=== PATIENT | female | born 1960 | race Caucasian/White ===

== ENCOUNTER 2019-10-19 02:47 | Emergency (ER) | payer SELFPAY ==
--- NOTE | 2019-10-19 03:45 | ED Physician Documentation ---
History of Present Illness - Stated complaint Stated Complaint: BP CONCERN - Chief complaint Chief Complaint: General - History obtained from History obtained from: Patient - History of Present Illness Timing: Today (tonight) Pain level now: 0 Improved by: nothing Worsened by: no clear exacerbating factors, but patient suspects contributing factors might include her recent long plane flight (visiting from [place]), adjusting to time difference (12 hour difference in time zones), and being excited in seeing her son for the first time in a few years - Additonal information Additional information: c/o high blood pressure. She is visiting from [place] and approximately 2 weeks ago she saw her doctor in anticipation of flying to [place] to visit family. Her blood pressure had always been normal; she says her blood pressure would typically be around 110/70. However, it was slightly elevated in doctor's office and thus she was prescribed captopril 25 mg to be taken 1-2 tablets PRN SBP >140. Tonight she had mild generalized weakness, mild lightheadedness, slight post-occipital discomfort/headache, and chills. She measured her blood pressure and had readings of 176/93 with successive readings relatively unchanged. She took a dose of the captopril with subsequent repeated doses to total of 100mg over the span of 1-2 hours. Her son brings her to ED because they did not notice any significant improvement in her blood pressure. She tells me that while awaiting evaluation in ED, she feels relaxed and that her symptoms have resolved and it is noted that her blood pressure is already improving (160s/70s when I walk in the room) Review of Systems Constitutional: reports: Chills (resolved) Eyes: reports: Reviewed and negative Cardiac: reports: Reviewed and negative Respiratory: reports: Reviewed and negative Neurologic: reports: Generalized weakness (mild, resolved), Headache (posterior/occipital (describes as discomfort rather than loly headache, and this has resolved)). 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 : None HEENT: None Psych: None Musculoskeletal: None Derm: None - Past Surgical History Past Surgical History: Yes General: Appendectomy - Allergies Allergies/Adverse Reactions: Allergies Allergy/AdvReac Type Severity Reaction Status Date / Time No Known Drug Allergies Allergy Verified 10/19/19 03:11 - Social History Does the pt smoke?: No Smoking Status: Never smoker Does the pt drink ETOH?: No Does the pt have substance abuse?: No - Immunizations Immunizations are current?: Yes - POLST Patient has POLST: No PD ED PE NORMAL - Vitals Vital signs reviewed: Yes - General General: Alert and oriented X 3, No acute distress, Well developed/nourished - HEENT HEENT: PERRL, EOMI, Moist mucous membranes - Cardiac Cardiac: RRR, No murmur, No gallop, No rub - Respiratory Respiratory: No respiratory distress, Clear bilaterally - Neuro Neuro: Alert and oriented X 3, 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, No motor deficit, No sensory deficit, Normal speech Eye Opening: Spontaneous Motor: Obeys Commands Verbal: Oriented GCS Score: 15 Results - Vitals Vitals: Vital Signs - 24 hr 10/19/19 10/19/19 10/19/19 03:07 03:10 03:37 Temperature 36.5 C Heart Rate 56 L 69 Respiratory 17 16 16 Rate Blood Pressure 176/82 H 144/74 H O2 Saturation 100 97 10/19/19 10/19/19 10/19/19 04:11 04:37 04:48 Temperature Heart Rate 69 65 Respiratory 16 16 16 Rate Blood Pressure 138/74 H 129/71 O2 Saturation 97 100 Oxygen O2 Source Room air - EKG (time done) No standard instances Rate: Rate (enter#) (61) Rhythm: NSR [place]: Normal Intervals: Normal IN QRS: Normal Ischemia: Normal ST segments PD MEDICAL DECISION MAKING - ED course Complexity details: reviewed results, re-evaluated patient, considered differential, d/w patient, d/w family ED course: Initially, patient agreed with my recommendation to obtain basic blood tests. However, before this was drawn, she decided to decline the blood tests, as she feels asymptomatic. This is a reasonable approach, and I encouraged her to return if worse, to continue to follow the parameters given by her doctor regarding the captopril, and to follow up with her doctor next available appointment even if she feels well Departure - Departure Disposition: 01 Home, Self Care Clinical Impression: Hypertension Condition: Good Instructions: ED Hypertension Poss Discharge Date/Time: 10/19/19 04:48
[2019-10-19 04:38] VITALS: BP 129/71
== END 2019-10-19 04:48 | disposition home or self-care (01) ==
LOC: ED 02:47
DX: I10 Essential (primary) hypertension (principal)
CPT/HCPCS: 80048; 85025; 93005; 99283; 99284